=== PATIENT | male | born 1980 | race African-American/Black ===

== ENCOUNTER 2016-10-12 01:42 | Emergency (ER) | payer MEDICAID ==
[~2016-10-12] VITALS: Ht 177.8 cm; Wt 91.0 kg
[2016-10-12] MEDS ORDERED: CEFTRIAXONE SODIUM 1 G/VIAL IM ONE (08:15)
[2016-10-12] MEDS ORDERED: TETANUS, DIPHTHERIA, PERTUSSIS VAC/PF 0.5ML (>7YR OLD) IM ONE (08:15)
[2016-10-12] MEDS ORDERED: BACITRACIN ZINC OINT UDPKT TOP ONE (08:15)
[2016-10-12] MEDS ORDERED: HYDROCODONE/ACETAMINOPHEN 5/325MG TABLET PO ONE (08:15)
[2016-10-12] MEDS ORDERED: LIDOCAINE HCL 1% 20ML VIAL (Pyxis) INJ MC ONE (08:15)
[2016-10-12 08:32] VITALS: BP 148/98
== END 2016-10-12 09:59 | disposition home or self-care (01) ==
LOC: ER 01:43
DX: L02.411 Cutaneous abscess of right axilla (principal); L02.213 Cutaneous abscess of chest wall; F20.9 Schizophrenia, unspecified
CPT/HCPCS: 10061; 90471; 90715; 96372; 99284; J0696; J3490; Z7610